=== PATIENT | female | born 1945 | race Caucasian/White ===

== ENCOUNTER 2017-05-31 10:34 | Emergency (ER) | payer MEDICARE, BC ==
[~2017-05-31] VITALS: Ht 166.4 cm; Wt 92.5 kg
[2017-05-31] MEDS ORDERED: AMLO10TA2 (10:49)
[2017-05-31] MEDS ORDERED: LISI10TA4 (10:49)
[2017-05-31] MEDS ORDERED: LEVO150T7 (10:49)
--- NOTE | 2017-05-31 12:03 | REP ---
Duplex extremity venous ultrasound: Right lower extremity. History: Right calf pain. Findings: The deep veins are anechoic and fully compressible from the groin to the popliteal fossa in the right lower extremity. Color flow imaging is homogeneous. Spectral Doppler interrogation demonstrates intact respiratory variation in flow and normal manual augmentation of flow. There is no evidence of deep vein thrombosis. Impression: Negative right lower extremity duplex venous ultrasound. No evidence of deep vein thrombosis. Signed by Cesar Pena MD 05/31/2017 11:54 A
[2017-05-31 12:49] VITALS: BP 126/70
--- NOTE | 2017-06-01 09:34 | ECGEPIP ---
Stationary ECG Study [facility] - ED Test Date: 2017-05-31 Pat Name: PARVIN ANGLIN Department: Room: - Gender: F [employer]: : [id number] Requested By: ELOY Oliver Order Number: [id number] Reading MD: Zoey Hay Measurements Intervals [place] Rate: 70 P: 48 AL: 164 QRS: 41 QRSD: 93 T: 37 QT: 372 QTc: 403 Interpretive Statements SINUS RHYTHM LOW VOLTAGE LIMB NO PRIOR FOR COMPARISON Electronically Signed On 06-01-2017 9:33:53 EDT by Zoey Hay
== END 2017-05-31 13:03 | disposition home or self-care (01) ==
LOC: M ED 10:34
DX: M79.661 Pain in right lower leg (principal); E07.9 Disorder of thyroid, unspecified; Z87.442 Personal history of urinary calculi; Z88.0 Allergy status to penicillin; Z79.899 Other long term (current) drug therapy